=== PATIENT | male | born 1950 | race Caucasian/White ===

== ENCOUNTER 2018-06-18 04:28 | Inpatient (IN) ==
[2018-06-18] MEDS ORDERED: Sodium Chloride 0.9% 1,000 ML PRIMARY IV ONE ×2 (05:03→07:01)
[2018-06-18] MEDS ORDERED: MORPHINE SULFATE 4 MG/1 ML IVP ONE (05:03)
--- NOTE | 2018-06-18 05:10 | PDOC ---
Abdomen/Flank HPI - General Chief Complaint: Abdomen Pain Stated Complaint: abdominal pain lower Date Seen by Provider: 06/18/18 Time Seen by Provider: 05:06 - History of Present Illness Initial Comments: This is a very nice 68-year-old gentleman who presents to the emergency department with complaints of increasing substantial abdominal pain. He has a history of seronegative rheumatoid arthritis and experienced a rotator cuff tear and had this repaired just recently. He's been on some oral pain medication since that time and is been experiencing substantial constipation. He had a bit of a bowel movement yesterday but for the most part is been just dealing with the constipation and not able to clear stools unfortunately through the wee hours a night tonight his abdominal pain has gotten quite severe and is diffuse through the abdomen. He has come to the emergency department for evaluation. He is never had any abdominal surgery and still has his appendix and gallbladder. He has never had problems with diverticulitis or any other bowel disorder. - Patient Home Medications Home Medications: Home Medications Omeprazole 20 mg PO DAILY cap 06/11/13 Simvastatin 40 mg PO DAILY tab 06/11/13 finasteride 5 mg tablet 5 mg PO QDAY 04/27/18 leflunomide 20 mg tablet 20 mg PO 2XW tab 04/27/18 leflunomide 20 mg tablet 20 mg PO QDAY 04/27/18 lisinopril 5 mg tablet 5 mg PO QDAY 04/27/18 metoprolol succinate ER 100 mg tablet,extended release 24 hr 100 mg PO QDAY 04/27/18 tamsulosin 0.4 mg capsule 0.4 mg PO QDAY 04/27/18 prednisone 5 mg tablet 5 mg PO QDAY 06/04/18 Calcium Carbonate/Vitamin D3 [Calcium 500-Vit D3 200 Tablet] 500 mg PO DAILY 06/09/18 HYDROcodone/APAP 7.5/325 Tab [[place] 7.5/325 Tab] 1 - 2 tab PO Q4H PRN #50 tab 06/09/18 Bisacodyl [Dulcolax] 5 mg PO DAILY 06/18/18 - Patient Allergies Allergies/Adverse Reactions: Allergies Allergy/AdvReac Type Severity Reaction Status Date / Time No Known Allergies Allergy Verified 06/18/18 04:30 Past Medical History - heen HEENT History: Denies History Cardiovascular History: Hypertension, Hyperlipidemia, Other (please comment) Additional Cardiovasular History: murmur Respiratory History: Denies History Gastrointestinal History: GERD Genitourinary History: Other (please comment) Additional Genitourinary History: enlarged prostate - turp surgery Endocrine History: Denies History Musculoskeletal History: Arthritis, Joint Pain, Other (please comment) Prosthesis or Implant: Yes (8 ribs plated) Additional Musculoskeletal History: Seronegative RA. left shoulder Neurological History: Denies History Blood Disorders: Denies History Psychiatric History: Denies History Cancer History: Denies History In Past Year Been Physically Harmed or Verbally Threatened: No History of MDRO: No Tobacco Use: Current Every Day Smoker In the Past 12 Months, Have Used or Abuse Any Substance: None Previous Surgical History: Yes Type / Date of Surgery: R Ribs, sinus, prostate, T & A, left rotator cuff Anesthesia Reactions: No Malignant Hyperthermia: No Significant Family History: Cancer, Hypertension, Other (please comment) Additional Family History: RA. Brother and sister from aneurysm ROS - Limitations ROS Limitations: No Limitations Constitution: REPORTS: Denies Symptoms Cardiovascular: REPORTS: Denies Cardiac Symptoms Respiratory: REPORTS: Denies Resp Symptoms Genitourinary: REPORTS: Denies Symptoms Abdominal/Flank Pain PE - General Appearance General Appearance: POSITIVE: Alert, Cooperative, No Acute Distress - HEENT HEENT: POSITIVE: Head Inspection Nml - Respiratory Respiratory: POSITIVE: No Respiratory Distress, Breath Sounds Normal - Cardiovascular Cardiovascular: POSITIVE: Regular Rate and Rhythm, Heart Sounds Normal - Abdomen Additional Abdominal Details: He has substantial tenderness throughout with guarding and very sluggish bowel tones. Abdomen Progress - Results Reviewed by me Xrays/CTs/US Reviewed by me: Yes Radiology Findings: Acute appendicitis Lab Results Reviewed by Me: Yes CBC and BMP: 06/18/18 05:32 06/18/18 05:32 - Patient's Progress MDM / ED Course: This nice gentleman came in with acute abdominal pain he was quite tender so we went straight to CT. He does have an acute appendicitis. These been given a gram of Invanz and is made nothing by mouth and general surgery has agreed to admit the patient. He is not on any blood thinners actively at this time. Patient Care Time - Estimated PCT Patient Care Time (In Minutes): 50 Vital Signs - Recent Vital Signs Vital Signs: Vital Signs (Last 8 hours) Temp Pulse Resp BP Pulse Ox 06/18/18 04:34 97.0 F 102 H 16 139/97 92 - VS Reviewed Vital Signs Reviewed: Yes Discharge Clinical Impression: Appendicitis Discharge Disposition: Admit to Inpatient Follow Up With: YANIRA RICH [Primary Care Provider] - Date Decision to Admit to Inpatient: 06/18/18 Time Decision to Admit to Inpatient: 07:01
[2018-06-18 05:38] LABS: BASOPHILS # (AUTO) 0.03 10*3/UL; BASOPHILS % (AUTO) 0.3 % (0-1); EOSINOPHILS # (AUTO) 0.04 10*3/UL; EOSINOPHILS % (AUTO) 0.4 % (0-8); Hematocrit [HCT] 46.4 % (42.0-52.0); Hemoglobin [HGB] 15.7 g/dL (14.0-18.0); LYMPHOCYTES # (AUTO) 1.39 10*3/uL; MEAN CORPUSCULAR HEMOGLOBIN 31.7 PG (27-31); MEAN CORPUSCULAR HGB CONC 33.8 g/dL (33-37); MEAN CORPUSCULAR VOLUME 93.5 FL (80-90); MEAN PLATELET VOLUME 10.1 FL (7.4-12.2); MONOCYTES % (AUTO) 7.8 % (5-15); NEUTROPHILS # (AUTO) 8.01 10*3/UL; NEUTROPHILS % (AUTO) 77.5 % (50-80); RED BLOOD COUNT 4.96 10^6/uL (4.70-6.10)
[2018-06-18 05:39] LABS: PLATELET MORPHOLOGY COMMENT NORMAL MORPHOLOGY (NORM); RBC MORPHOLOGY COMMENT NORMAL MORPHOLOGY (NORM); WBC MORPHOLOGY COMMENT NORMAL MORPHOLOGY (NORM)
[2018-06-18 05:49] LABS: BLOOD UREA NITROGEN 26 mg/dL (7-22); LIPASE 121 IU/L (23-300); SERUM ALBUMIN 3.8 g/dL (3.5-4.8)
--- NOTE | 2018-06-18 06:46 | DI ---
EXAM: CT Abdomen and Pelvis With Intravenous Contrast CLINICAL HISTORY: diffuse abdominal pain with guarding Physician Notes: Tech Comments: TECHNIQUE: Axial computed tomography images of the abdomen and pelvis with intravenous contrast. COMPARISON: No relevant prior studies available. FINDINGS: Lung bases: There is linear atelectasis versus fibrosis at the lung bases. ABDOMEN: Liver: Unremarkable. No mass. Gallbladder and bile ducts: Unremarkable. No calcified stones. No ductal dilation. Pancreas: Unremarkable. No mass. No ductal dilation. Spleen: Unremarkable. No splenomegaly. Adrenals: Unremarkable. No mass. Kidneys and ureters: Unremarkable. No solid mass. No hydronephrosis. Stomach and bowel: There is diverticulosis, without evidence of diverticulitis. No obstruction. There is prominence of the wall of the stomach at the antrum, possibly mild antral gastritis. PELVIS: Appendix: The appendix is abnormally thick, measuring up to 11 mm in diameter at its mid segment. There is moderate surrounding inflammation with a small amount of ascites, predominantly in the right lower quadrant. There is no evidence of perforation or abscess. Bladder: Unremarkable. No mass. Reproductive: Unremarkable as visualized. ABDOMEN and PELVIS: Intraperitoneal space: See above. Bones/joints: Postsurgical changes are noted from fixation of old right rib fractures. There is a benign-appearing sclerotic focus in the right inferior pubic ramus. This is likely of no clinical significance, possibly a bone island. No dislocation. Soft tissues: Small fat-containing right inguinal hernia and moderate- sized fat-containing left inguinal hernia. Vasculature: Unremarkable. No abdominal aortic aneurysm. Lymph nodes: Unremarkable. No enlarged lymph nodes. IMPRESSION: 1. Acute appendicitis. No evidence of abscess or perforation. 2. Possible mild antral gastritis. 3. Bilateral fat-containing inguinal hernias. Critical Value Communications 06/18/18 06:50 Call Doctor Regarding Appendicitis, called Dr. Chavo Parra on 06/18 06:50 (-07:00)
[2018-06-18] MEDS ORDERED: Ertapenem Inj 1 GM in Sodium Chloride 0.9% 100 ML IV ONE (06:51)
--- NOTE | 2018-06-18 07:43 | PDOC ---
HPI - History of Present Illness Date of Service: 06/18/18 Time of Service: 07:40 Chief Complaint: Right lower quadrant pain History of Present Illness: 60-year-old gentleman inserted having abdominal pain yesterday is kind generalized nausea to the right lower quadrant. Patient has CT scan which showed some thickened appendix with periappendiceal fluid. Little bit of ascites associated with this. Patient's white count is normal. He's afebrile. He does state he square having bowel movements and passing gas yesterday. Past Medical History Medical History: Rheumatoid arthritis. Hypertension Surgical History: Shoulder surgery Tobacco Use: Current Every Day Smoker Do you dip or chew tobacco: Yes In the Past 12 Months, Have Used or Abuse Any of the Following Substance: None Medication / Allergies Home Medications: Home Medications Medication Instructions Recorded Confirmed Type Omeprazole 20 mg PO DAILY cap 06/11/13 06/18/18 History Simvastatin 40 mg PO DAILY tab 06/11/13 06/18/18 History finasteride 5 mg tablet 5 mg PO QDAY 04/27/18 06/18/18 History leflunomide 20 mg tablet 20 mg PO 2XW tab 04/27/18 06/18/18 History leflunomide 20 mg tablet 20 mg PO QDAY 04/27/18 06/18/18 History lisinopril 5 mg tablet 5 mg PO QDAY 04/27/18 06/18/18 History metoprolol succinate ER 100 mg 100 mg PO QDAY 04/27/18 06/18/18 History tablet,extended release 24 hr tamsulosin 0.4 mg capsule 0.4 mg PO QDAY 04/27/18 06/18/18 History prednisone 5 mg tablet 5 mg PO QDAY 06/04/18 06/18/18 History Calcium Carbonate/Vitamin D3 500 mg PO DAILY 06/09/18 06/18/18 History [Calcium 500-Vit D3 200 Tablet] HYDROcodone/APAP 7.5/325 Tab 1 - 2 tab PO Q4H PRN #50 tab 06/09/18 06/18/18 Rx [[place] 7.5/325 Tab] Bisacodyl [Dulcolax] 5 mg PO DAILY 06/18/18 06/18/18 History Allergies/Adverse Reactions: Allergies Allergy/AdvReac Type Severity Reaction Status Date / Time No Known Allergies Allergy Verified 06/18/18 04:30 Review of Systems - Review of Systems All Systems: Reviewed & No Additional Complaints Except as Stated Exam - Vitals Vital Signs: Vital Signs Temperature 97.0 F Temperature Source Temporal Artery Scan Pulse Rate [Pulse Oximeter] 102 Respiratory Rate 16 Blood Pressure [Right Arm] 139/97 Pulse Ox 92 Oxygen Delivery Method Room Air Height 5 ft 11 in Weight 211 lb - General General Appearance: No Acute Distress, Cooperative - Eye Eye Exam: POSITIVE: PERRL, EOMI - Neck Neck Exam: Normal Inspection, Full ROM - Respiratory Respiratory Exam: POSITIVE: Clear to Auscultation - Bilaterally, Breathing Non Labored - Cardiovascular Cardiovascular Exam: POSITIVE: No Murmur - GI/Abdominal GI/Abdominal Exam: POSITIVE: Distended, Positive for RUQ Pain Additional GI/Abdominal Exam Details: Tender in the right lower quadrant was guarding but no rebound Results - Labs CBC and BMP: 06/18/18 05:32 06/18/18 05:32 Assessment and Plan - Patient Problems (1) Appendicitis Current Visit: Yes Status: Acute Code(s): K37 - Unspecified appendicitis - Assessment / Plan Additional Assessment/Plan Details: Patient was given Invanz in the emergency department. He will need to have an appendectomy. Risks benefits surgery were discussed with him. I do not think is a good candidate for conservative measures. We'll taken surgery at the first available time.
[2018-06-18] MEDS ORDERED: Nasal Sanitizer POPSWAB ampule 3 AMP (Nozin) PREOP DOSE ENOS SCH (08:23)
[2018-06-18] MEDS: Lactated Ringers 1,000 ML PRIMARY IV SCH ×2 (08:33→23:29)
[2018-06-18] MEDS ORDERED: Lactated Ringers 1,000 ML PRIMARY IV ONE (08:38)
[2018-06-18] MEDS ORDERED: PROPOFOL 10 MG/1 ML (200 MG/20 ML) VIAL IV ONE (09:02)
[2018-06-18] MEDS ORDERED: LIDOCAINE MPF 2% - 5 ML (20 MG/1 ML) ONE (09:02)
[2018-06-18] MEDS ORDERED: MIDAZOLAM HCL 2 MG/2 ML VIAL ONE (09:02)
[2018-06-18] MEDS ORDERED: fentaNYL Inj 250 MCG/5 ML VIAL ONE (09:02)
[2018-06-18] MEDS ORDERED: BUPIVACAINE 0.25% W/ EPI - 10 ML VIAL ONE ×2 (09:42→09:43)
[2018-06-18] MEDS ORDERED: ROCURONIUM 10 MG/1 ML - 5 ML VIAL IVP ONE (09:49)
[2018-06-18] MEDS ORDERED: KETAMINE 100 MG/1 ML - 5 ML ONE (10:23)
[2018-06-18] MEDS ORDERED: SUGAMMADEX SODIUM 200 MG/2 ML VIAL IV ONE (10:37)
[2018-06-18] MEDS ORDERED: BUPivacaine Liposome/PF (Exparel) Inj 20ml vial INFIL ONE (10:40)
[2018-06-18] MEDS ORDERED: HYDROmorphone 2 MG/1 ML IVP PRN ×2 (10:56→11:12)
[2018-06-18] MEDS ORDERED: PROMETHAZINE 25 MG/1 ML VIAL IM PRN (10:56)
[2018-06-18] MEDS ORDERED: ONDANSETRON 4 MG/2 ML VIAL IVP PRN ×2 (10:56→11:12)
[2018-06-18] MEDS ORDERED: fentaNYL Inj 100 MCG/2 ML VIAL IVP PRN (10:56)
[2018-06-18] MEDS ORDERED: LIDOCAINE W/ SODIUM BICARB 0.5 ML SYR SUBD PRN (10:56)
--- NOTE | 2018-06-18 10:57 | CRNA.PROGR ---
Anesthesia Time - Procedure/Recovery Time Start Date: 06/18/18 End Date: 06/18/18 Anesthesia : Time In: 09:47 Anesthesia : Time Out: 10:54 Anesthesia : Total Time: 67 - Total Anesthesia Time Total Anesthesia Time (minutes): 67 - Other Weight: 95.708 kg Height: 5 ft 11 in Body Mass Index (BMI): 29.4 Physical Status: P2 Anesthesia Type: General Anesthesia : ET
--- NOTE | 2018-06-18 10:57 | CRNA.PROGR ---
Anesthesia Recovery Phase I - Post Anesthesia Evaluation Patient's Condition on Arrival in Phase I: Stable Pain Level: 0
[2018-06-18] MEDS ORDERED: Lactated Ringers 1,000 ML PRIMARY IV SCH (11:00)
[2018-06-18] MEDS ORDERED: MORPHINE SULFATE 2 MG/1 ML IVP PRN (11:12)
--- NOTE | 2018-06-18 16:09 | ORTHO.PROG ---
Last Taken Vital Signs: Vital Signs - Last Taken Temperature 98 F 06/18/18 15:30 Pulse Rate 114 H 06/18/18 15:30 Respiratory Rate 22 06/18/18 15:30 Blood Pressure 133/79 06/18/18 15:30 Pulse Ox 93 06/18/18 15:30 Subjective: Patient states shoulder not hurting too bad has done some therapy sessions as outpatient Objective: Incisions clean and dry no evidence of infection left upper extremity patient in rotator cuff brace, Steffi mendoza. Motor and sensory exam is nonfocal hand and wrist. Vital Signs (24 hrs) 06/18/18 04:34 06/18/18 08:10 06/18/18 08:31 Temperature 97.0 F 97.6 F 98.2 F Pulse Rate 109 H 120 H Pulse Rate [Pulse Oximeter] 102 H Respiratory Rate 16 18 20 Blood Pressure 181/79 170/103 Blood Pressure [Right Arm] 139/97 Pulse Ox 92 94 91 06/18/18 10:50 06/18/18 10:55 06/18/18 11:00 Temperature 97.6 F Pulse Rate 115 H 115 H 117 H Pulse Rate [Pulse Oximeter] Respiratory Rate 18 16 18 Blood Pressure 157/83 170/98 171/94 Blood Pressure [Right Arm] Pulse Ox 92 95 95 06/18/18 11:04 06/18/18 11:09 06/18/18 11:14 Temperature Pulse Rate 118 H 115 H 116 H Pulse Rate [Pulse Oximeter] Respiratory Rate 18 18 18 Blood Pressure 158/83 143/88 134/83 Blood Pressure [Right Arm] Pulse Ox 95 94 94 06/18/18 11:19 06/18/18 11:36 06/18/18 11:40 Temperature 98.9 F Pulse Rate 115 H Pulse Rate [Pulse Oximeter] 108 H 116 H Respiratory Rate 18 24 24 Blood Pressure 129/86 Blood Pressure [Right Arm] 134/77 Pulse Ox 95 92 06/18/18 11:55 06/18/18 12:10 06/18/18 12:55 Temperature 98.4 F 98 F 98 F Pulse Rate Pulse Rate [Pulse Oximeter] 113 H 113 H 110 H Respiratory Rate 24 22 22 Blood Pressure Blood Pressure [Right Arm] 124/81 135/70 125/82 Pulse Ox 93 93 93 06/18/18 15:30 Temperature 98 F Pulse Rate Pulse Rate [Pulse Oximeter] 114 H Respiratory Rate 22 Blood Pressure Blood Pressure [Right Arm] 133/79 Pulse Ox 93 Assessment: Patient with left shoulder rotator cuff repair of subscapularis and supraspinatus approximately 9 days ago with recent admission and surgery for ruptured appendix Plan: Patient was told he is likely going to be in the hospital for a while because of the significant issues with the appendix and abdomen. If patient is hospitalized for prolonged period time and is able to do physical therapy for her shoulder that would be very helpful for him in the long run. Continue to protect the shoulder and start therapy when able. We'll plan on getting sutures out and maybe 3-4 days.
[2018-06-18] MEDS: HYDROcodone-APAP 7.5 MG-325 MG TABLET PO PRN (18:52)
[2018-06-19] MEDS: HYDROcodone-APAP 7.5 MG-325 MG TABLET PO PRN ×2 (00:42→08:15)
[2018-06-19 05:19] LABS: BASOPHILS # (AUTO) 0.04 10*3/UL; BASOPHILS % (AUTO) 0.4 % (0-1); EOSINOPHILS # (AUTO) 0.11 10*3/UL; EOSINOPHILS % (AUTO) 1.1 % (0-8); Hematocrit [HCT] 40.3 % (42.0-52.0); Hemoglobin [HGB] 12.9 g/dL (14.0-18.0); LYMPHOCYTES # (AUTO) 1.64 10*3/uL; MEAN CORPUSCULAR HEMOGLOBIN 30.5 PG (27-31); MEAN CORPUSCULAR VOLUME 95.3 FL (80-90); MEAN PLATELET VOLUME 10.3 FL (7.4-12.2); MONOCYTES # (AUTO) 0.95 10*3/UL (0.3-0.8); MONOCYTES % (AUTO) 9.4 % (5-15); NEUTROPHILS % (AUTO) 72.4 % (50-80); RED BLOOD COUNT 4.23 10^6/uL (4.70-6.10)
[2018-06-19 05:21] LABS: PLATELET MORPHOLOGY COMMENT NORMAL MORPHOLOGY (NORM); RBC MORPHOLOGY COMMENT NORMAL MORPHOLOGY (NORM); WBC MORPHOLOGY COMMENT NORMAL MORPHOLOGY (NORM)
[2018-06-19 05:34] LABS: BLOOD UREA NITROGEN 15 mg/dL (7-22); BUN/CREATININE RATIO 18.75 (6-20)
[2018-06-19] MEDS: Ertapenem Inj 1 GM in Sodium Chloride 0.9% 100 ML IV SCH (08:19)
--- NOTE | 2018-06-19 09:45 | OTI REPORT ---
Thank you for the referral of Guy Slaughter. He was seen on 06/18/18 for an occupational therapy inpatient evaluation status post left subscapularis and supraspinatus repair. SUBJECTIVE: The patient is a 68-year-old male. The patient was being seen by outpatient occupational therapy in [place] for the rehabilitation of his left rotator cuff repair. After he was seen in outpatient therapy yesterday he went home and later started to feel pain in his lower abdomen. The patient did come to the emergency room early this morning and he was treated for a rupture of his appendix with surgery. The patient is being seen today for passive range of motion to continue with protocol for the left rotator cuff repair while he is in the hospital. The patient reports he has been in and out of the sling all day long. Specifically with the CT scan, he had to have his arm down at his side. PAST MEDICAL HISTORY: Past medical history can be found in the patient's medical record. OBJECTIVE FINDINGS: Objective findings: The patient is still somewhat drowsy and sleepy from surgery; however, he agrees to participate in passive range of motion and OT evaluation. Pain: The patient reports he is in very minimal pain right now. Range of motion: The patient tolerated passive range of motion to 90 degrees of flexion and abduction. ASSESSMENT: The patient tolerated passive range of motion well. The patient may benefit from skilled occupational therapy to continue with passive range of motion per protocol for the left rotator cuff repair while the patient is hospitalized for his appendectomy. Problem List: Patient is status post left rotator cuff repair Pain Edema Decreased passive range of motion Short-Term Goals: To be met by discharge from inpatient: Patient will tolerate passive range of motion one time per day. Patient will demonstrate compliance with wearing and donning/doffing of his shoulder immobilizer. Patient's edema will be controlled. Long-Term Goals: To be met following discharge from inpatient: Patient will continue with outpatient occupational therapy in [place] upon discharge from hospital. TREATMENT PLAN: Patient will be seen one time per day during the week and one time per day over the weekend as an inpatient to address the above goals and objectives. INITIAL TREATMENT: Treatment today consisted of the initial evaluation followed by passive range of motion to 90 degrees of flexion and abduction. Following passive range of motion the patient was returned to his sling and a pillow was placed under his wrist to assist with putting his wrist in a neutral position. Dr. Herrera's nurse did contact the therapist regarding when the sutures would be removed. They may be removed on Friday. We are to continue with post op protocol for the left rotator cuff repair to include passive range of motion (no active motion at this time). The patient is to remain in sling. JAGDSIH
[2018-06-19] MEDS ORDERED: KETOROLAC 15 MG/1 ML VIAL IVP PRN (10:41)
--- NOTE | 2018-06-19 10:43 | PDOC(PROG) ---
Subjective Post Op Day: 1 [place] Catheter: No Flatus: No Diet: Clear Liquids Ambulating: Yes Date of Service: 06/19/18 Time of Service: 10:42 Interval History: Patient states that he is doing pretty good. He is having little bit of discomfort previous was up ambulating. He has no nausea vomiting. He is not running fevers Objective : Data - Labs CBC and BMP: 06/19/18 04:25 06/19/18 04:25 - Vital Signs Vital Signs and I&O: Vital Signs - Last Taken Temperature 97.2 F 06/19/18 09:00 Pulse Rate 105 H 06/19/18 09:00 Respiratory Rate 20 06/19/18 09:00 Blood Pressure 143/72 06/19/18 09:00 Pulse Ox 90 06/19/18 09:00 Intake and Output (24hr x 4 totals) 06/17/18 06/18/18 06/19/18 06/20/18 05:59 05:59 05:59 05:59 Intake Total 1000 / 1000 3082 / 3082 Output Total 0 / 2060 300 / 300 Balance 1000 / 1000 1022 / 1022 -300 / -300 Objective : Exam - General General Appearance: No Acute Distress, Cooperative - Respiratory Respiratory Exam: Clear to Auscultation - Bilaterally Assessment and Plan - Patient Problems (1) Appendicitis Current Visit: Yes Status: Acute Code(s): K37 - Unspecified appendicitis - Assessment / Plan Additional Assessment/Plan Details: Patient is actually doing very well. Will given Toradol for the additional pain coverage. Advance his diet as tolerated patient needs another dose of IV antibiotics in the a.m. and hopefully will be switching to orals and discharge home
[2018-06-19] MEDS: Lactated Ringers 1,000 ML PRIMARY IV SCH ×2 (10:53→19:34)
[2018-06-19] MEDS: FINASTERIDE 5 MG TABLET PO SCH (14:03)
[2018-06-19] MEDS ORDERED: predniSONE 5 MG TABLET PO ONE (14:15)
--- NOTE | 2018-06-19 16:18 | OT.PROG ---
Progress Note Progress Note: S: pt stated he was feeling okay this morning. O: tx consisted of moist heat x 20 min to L UE, PROM stretching of flexion, scaption and abduction. pt was left with an ice pack on L UE for pain management and edema. A: pt tolerated session well and had no reports of pain in shoulder. P: continue POC Addendum entered and electronically signed by Mara Martinez 06/19/18 16:32: pt was seen at 8:30 am
--- NOTE | 2018-06-19 16:22 | OT.PROG ---
Progress Note Progress Note: S: pt stated he felt much better this afternoon. O: tx consisted of bed mobility from supine to EOB independently, functional ambulation x 350 independently, and final transfer from EOB to supine. A: pt reported no increases in pain during tx session and is independent in bed transfers. P: continue POC Addendum entered and electronically signed by Mara Martinez 06/19/18 16:31: pt was seen at 8:30 am 06/19/18 Addendum entered and electronically signed by Mara Martinez 06/19/18 16:31: VOID previous addendum
[2018-06-19] MEDS ORDERED: TAMSULOSIN 0.4 MG CAPSULE PO SCH (21:00)
[2018-06-20] MEDS: HYDROcodone-APAP 7.5 MG-325 MG TABLET PO PRN (01:37)
[2018-06-20 05:27] LABS: BASOPHILS # (AUTO) 0.03 10*3/UL; BASOPHILS % (AUTO) 0.3 % (0-1); EOSINOPHILS # (AUTO) 0.17 10*3/UL; EOSINOPHILS % (AUTO) 1.6 % (0-8); Hematocrit [HCT] 37.4 % (42.0-52.0); Hemoglobin [HGB] 11.9 g/dL (14.0-18.0); LYMPHOCYTES # (AUTO) 1.53 10*3/uL; MEAN CORPUSCULAR HEMOGLOBIN 30.5 PG (27-31); MEAN CORPUSCULAR HGB CONC 31.8 g/dL (33-37); MEAN CORPUSCULAR VOLUME 95.9 FL (80-90); MEAN PLATELET VOLUME 10.2 FL (7.4-12.2); MONOCYTES # (AUTO) 0.75 10*3/UL (0.3-0.8); MONOCYTES % (AUTO) 7.3 % (5-15); NEUTROPHILS # (AUTO) 7.83 10*3/UL; NEUTROPHILS % (AUTO) 75.8 % (50-80)
[2018-06-20 05:32] LABS: PLATELET MORPHOLOGY COMMENT NORMAL MORPHOLOGY (NORM); RBC MORPHOLOGY COMMENT NORMAL MORPHOLOGY (NORM); WBC MORPHOLOGY COMMENT NORMAL MORPHOLOGY (NORM)
[2018-06-20] MEDS: Ertapenem Inj 1 GM in Sodium Chloride 0.9% 100 ML IV SCH (07:32)
[2018-06-20] MEDS: FINASTERIDE 5 MG TABLET PO SCH (08:37)
[2018-06-20] MEDS ORDERED: predniSONE 5 MG TABLET PO SCH (09:00)
[2018-06-20] MEDS ORDERED: METOPROLOL SUCCINATE 100 MG SR 24H TABLET PO SCH (09:00)
[2018-06-20] MEDS ORDERED: LISINOPRIL 5 MG TABLET PO SCH (09:00)
[2018-06-20] MEDS ORDERED: Calcium/Vit D 600mg/400u Tab 1 TAB TABLET PO SCH (09:00)
[2018-06-20] MEDS ORDERED: TAMSULOSIN 0.4 MG CAPSULE PO SCH (09:00)
[2018-06-20] MEDS ORDERED: BISACODYL 5 MG TABLET PO PRN (09:00)
--- NOTE | 2018-06-20 10:52 | DCSUMMARY ---
Discharge Summary Admit Date: 06/18/18 Discharge Date: 06/20/18 Admitting Diagnosis: acute appendicitis Discharge Diagnosis: Acute appendicitis with generalized peritonitis Primary Surgery and Date: 06/18/2018 an appendectomy Hospital Course: Patient came in with acute right lower quadrant pain consistent with acute appendicitis. CT confirmed acute appendicitis. Patient when appendectomy on date of admission. He has she did very well. He had a ruptured appendix with generalized peritonitis. He was placed on Invanz. On June 20 patient's white count was normal he is afebrile. He'll be discharged home. He'll be on Augmentin for additional for 5 days. Exam - Vitals Vital Signs: Vital Signs Temperature 97.6 F Temperature Source Temporal Artery Scan Pulse Rate [Pulse Oximeter] 95 Pulse Rate 115 Respiratory Rate 20 Blood Pressure [Right Arm] 142/73 Blood Pressure 129/86 Pulse Ox 92 Oxygen Flow Rate 1 Oxygen Delivery Method Nasal Cannula Height 5 ft 11 in Weight 217 lb - General General Appearance: No Acute Distress - GI/Abdominal GI/Abdominal Exam: POSITIVE: Normal Bowel Sounds, Non Tender, Non Distended, Soft Patient Problems - Patient Problem List (1) Appendicitis Current Visit: Yes Status: Acute Code(s): K37 - Unspecified appendicitis Category: Medical (2) Acute appendicitis with generalized peritonitis Current Visit: Yes Status: Acute Code(s): K35.20 - Acute appendicitis with generalized peritonitis, without abscess Category: Medical
[2018-06-20] MEDS ORDERED: Simvastatin Tab 40 MG TAB PO SCH (21:00)
--- NOTE | 2018-06-22 09:29 | PT AM DAY ---
Diagnosis : Left RTC Repair AM - Physical Therapy S: The patient states his pain is a 2/10 on the verbal analog scale (0=no pain, 10=worst pain). He states he feels much better with his other medical issues in hand. O: The patient was seen in his room for range of motion of his left shoulder post rotator cuff reconstruction. A: The patient is receiving his last bout of antibiotics and after that is over with he will be going home. We will continue to follow him in the outpatient clinic for his rotator cuff protocol. It has been a pleasure helping Guy through this. P: Patient will be discharged to home. JAGDISH
--- NOTE | 2018-06-24 10:04 | GEN.OPNOTE ---
Operative Note Surgery Date: 06/18/18 Preoperative Diagnosis: Acute appendicitis Postoperative Diagnosis: Acute appendicitis with peritonitis Procedure: Appendectomy Surgeon: Keith Carmen MD Anesthesia Provider: Amirah Myles CRNA Anesthesia Type: General Estimated Blood Loss (mL): 10 Pathology: Appendix Operative Summary: Patient brought in the operating room placed in supine position. Was given general endotracheal anesthesia. Was prepped draped in sterile fashion. A small incision was made over the point of maximum tenderness. Blunt dissection and cautery was used to dissect through subcutaneous tissue. We opened up the aponeurosis external oblique along its natural lines. The muscle-splitting incision opened the posterior sheath transversely. Placed in the fátima retractor in. Identified the appendix grasped with [place]. Brought up into the surgical wound. We clamped divided the mesoappendix tied off with 0 Vicryl suture. Doubly clamped the appendiceal base. Divided the appendix between the clamps with Paredes scissors. Handed off the appendix as a surgical specimen. Doubly tied the pins the stump with 0 Vicryl sutures. Cauterize the tip of the appendix stump to prevent mucocele. We irrigated with clear fluid. Close the posterior sheath with 0 Vicryl suture. Closed the anterior fascia sheath with 0 Vicryl suture. Bathed the subcutaneous tissue with 1/4% Marcaine for postoperative pain control. The skin closed with 4-0 Monocryl continuous running subcuticular stitch Steri-Strips were applied sterile dressing applied. Counts were correct. There were no complications. Patient Problems - Patient Problem List (1) Appendicitis Status: Acute Code(s): K37 - Unspecified appendicitis Category: Medical (2) Acute appendicitis with generalized peritonitis Status: Acute Code(s): K35.20 - Acute appendicitis with generalized peritonitis, without abscess Category: Medical Procedure Codes - Surgical Procedures Primary Surgical Procedure: 85242 : Appendectomy
== END 2018-06-20 11:55 | disposition home or self-care (01) | DRG 343 ==
LOC: ER 04:28 → OPS 08:04 → MED/SURG 08:10
PROVIDERS: ADMIT Surgery; ATTEND Surgery